=== PATIENT | male | born 1970 | race Caucasian/White ===

== ENCOUNTER 2016-09-13 16:33 | Emergency (ER) | payer BC ==
[2016-09-13] MEDS ORDERED: Adacel (T-DAP) 0.5 ML VIAL ONE (16:42)
[2016-09-13] MEDS ORDERED: Cephalexin 250 MG CAP ONE (17:06)
[2016-09-13] MEDS ORDERED: Bacitracin Zinc 1 Packet ONE (17:10)
== END 2016-09-13 17:18 | disposition home or self-care (01) ==
LOC: BURERS 16:33
DX: S61.211A Laceration without foreign body of left index finger without damage to nail, initial encounter (principal); W45.8XXA Other foreign body or object entering through skin, initial encounter
CPT/HCPCS: 12001; 90471; 90715; J2001

== ENCOUNTER 2020-10-24 02:09 | Emergency (ER) | payer BC ==
[2020-10-24] MEDS ORDERED: Lidocaine 1% PF 5 ML VIAL ONE (02:26)
== END 2020-10-24 03:17 | disposition home or self-care (01) ==
LOC: BURERS 02:09
DX: S01.311A Laceration without foreign body of right ear, initial encounter (principal); W07.XXXA Fall from chair, initial encounter
CPT/HCPCS: 12013